=== PATIENT | female | born 1995 | race Caucasian/White ===

== ENCOUNTER 2018-08-28 18:02 | Emergency (ER) | payer OTHER ==
[2018-08-28] MEDS ORDERED: KETOROLAC 30 MG/1 ML SDV IVP ONE (18:33)
[2018-08-28] MEDS ORDERED: NS 1,000 ML IV ONE (18:33)
--- NOTE | 2018-08-28 18:34 | EDPHY ---
H & P Stated Complaint: RLQ abd pain x 48hrs Time Seen by Provider: 08/28/18 18:29 HPI/ROS: CHIEF COMPLAINT: Right upper quadrant pain HISTORY OF PRESENT ILLNESS: The patient is a 23-year-old female who comes to the emergency department complaining of right upper quadrant pain for the last 48 hr. She states that it is intermittent and seems to be worse when she eats or walks. It does not radiate. She presented to [facility] today where they perform a CBC and chemistry. Her white count was 7 and her electrolytes are normal. Her creatinine 0.7. test is negative. They also performed a negative Monospot and strep test because she has exudative tonsils and had sore throat this morning before gargling with salt water. It has since resolved. She has not had a fever. She has had mild nausea but no vomiting. No diarrhea. Rest of her lab work including LFTs and UA were negative. They referred her here for rule out appendicitis. Severity: Moderate Modifying factors: Worsened by eating and walking REVIEW OF SYSTEMS: Constitutional: denies: chills, fever, recent illness, recent injury EENTM: denies: blurred vision, double vision, nose congestion Respiratory: denies: cough, shortness of breath Cardiac: denies: chest pain, irregular heart rate, lightheadedness, palpitations Gastrointestinal/Abdominal: See HPI Genitourinary: denies: dysuria, frequency, hematuria, pain Musculoskeletal: denies: joint pain, muscle pain Skin: denies: lesions, rash, jaundice, bruising Neurological: denies: headache, numbness, paresthesia, tingling, dizziness, weakness Hematologic/Lymphatic: denies: blood clots, easy bleeding, easy bruising Immunologic/allergic: denies: HIV/AIDS, transplant 10 systems reviewed and negative except as noted EXAM: GENERAL: Well-appearing, well-nourished and in no acute distress. HEAD: Atraumatic, normocephalic. EYES: Pupils equal round and reactive to light, extraocular movements intact, sclera anicteric, conjunctiva are normal. ENT: TMs normal, nares patent, oropharynx clear without exudates. Moist mucous membranes. NECK: Normal range of motion, supple without lymphadenopathy or JVD. LUNGS: Breath sounds clear to auscultation bilaterally and equal. No wheezes rales or rhonchi. HEART: Regular rate and rhythm without murmurs, rubs or gallops. ABDOMEN: Right upper quadrant/right rib pain. Tenderness to palpation, negative Zhu sign. No lower abdominal tenderness. No suprapubic tenderness BACK: No CVA tenderness, no spinal tenderness, step-offs or deformities EXTREMITIES: Normal range of motion, no pitting or edema. No clubbing or cyanosis. NEUROLOGICAL: Cranial nerves II through XII grossly intact. Normal speech, normal gait. 5/5 strength, normal movement in all extremities, normal sensation , normal reflexes PSYCH: Normal mood, normal affect. SKIN: Warm, dry, normal turgor, no visible rashes or lesions. Source: Patient Exam Limitations: No limitations - Personal History LMP (Females 10-55): 15-21 Days Ago Current Tetanus Diphtheria and Acellular Pertussis (TDAP): Yes - Medical/Surgical History Hx Asthma: No Hx Chronic Respiratory Disease: No Hx Diabetes: No Hx Cardiac Disease: No Hx Renal Disease: No Hx Cirrhosis: No Hx Alcoholism: No Hx HIV/AIDS: No Hx Splenectomy or Spleen Trauma: No Other PMH: DVT's - Family History Significant Family History: No pertinent family hx - Social History Smoking Status: Never smoked Alcohol Use: None Constitutional: Initial Vital Signs Temperature (C) 37.3 C 08/28/18 18:04 Heart Rate 84 08/28/18 18:04 Respiratory Rate 16 08/28/18 18:04 Blood Pressure 114/72 08/28/18 18:04 O2 Sat (%) 97 08/28/18 18:04 O2 Delivery Mode Room Air Allergies/Adverse Reactions: Penicillins Allergy (Verified 08/28/18 18:06) Home Medications: Medication Instructions Recorded NK [No Known Home Meds] 08/28/18 Medical Decision Making - Diagnostics Imaging Results: Imaging Impressions Abdomen Ultrasound 08/28/18 18:33 Impression: Essentially negative right upper quadrant ultrasound with no evidence for cholelithiasis. Results called and discussed with MARY VÁSQUEZ M.D. on 08/28/2018 at 19:30. Abdomen CT 08/28/18 19:38 Impression: 1. Query constipation. 2. A normal appendix is visualized. 3. See above report for additional findings. Results called and discussed with MARY VÁSQUEZ M.D. on 08/28/2018 at 20:51. Imaging: Discussed imaging studies w/ photographer's assistant Radiologist ED Course/Re-evaluation: Patient was sent here to rule out appendicitis. I have very little concern for appendicitis based on her lab work and right upper quadrant pain. She has no right lower quadrant pain. She has a benign abdominal exam. Labs have all been performed earlier today. Will obtain ultrasound to evaluate her gallbladder and liver. 7:40 p.m. we discussed the patient's ultrasound which is reassuring. She is now however complaining more of pain in her right lower quadrant. She states that the pain is improved significantly after Toradol. Will obtain CT scanning. 8:55 p.m. We discussed the CT scans. She is reassured. We discussed treatment for constipation. Her lab work is all reassuring. Her abdominal exam is benign. Discussed indications for returning. Differential Diagnosis: Partial list of the Differential diagnosis considered include but were not limited to; biliary disease, constipation, appendicitis, kidney stone and although unlikely based on the history and physical exam, I also considered urinary tract infection, , cyst, torsion. I discussed these differential diagnoses and the plan with the patient as well as the usual and expected course. The patient understands that the diagnosis is provisional and that in medicine we are not always correct and that further workup is often warranted. Usual and customary warnings were given. All of the patient's questions were answered. The patient was instructed to return to the emergency department should the symptoms at all worsen or return, otherwise to followup with the physician as we discussed. - Data Points Medications Given: Discontinued Medications Sodium Chloride (Ns) 1,000 mls @ 0 mls/hr IV EDNOW ONE; Wide Open PRN Reason: Protocol Stop: 08/28/18 18:34 Last Admin: 08/28/18 18:52 Dose: 1,000 mls Ketorolac Tromethamine (Toradol) 30 mg IVP EDNOW ONE Stop: 08/28/18 18:34 Last Admin: 08/28/18 18:52 Dose: 30 mg Point of Care Test Results: Chemistry 08/28/18 18:29 POC Sodium 140 mEq/L mEq/L (135-145) POC Potassium 3.7 mEq/L mEq/L (3.3-5.0) POC Chloride 102 mEq/L mEq/L (97-110) POC Total CO2 23 mEq/L mEq/L (22-31) POC BUN 9 mg/dL mg/dL (7-23) POC Creatinine 0.6 mg/dL mg/dL (0.6-1.0) POC Glucose 91 mg/dL mg/dL (70-100) ISTAT H&H 08/28/18 18:29 POC Hgb 14.6 gm/dL gm/dL (12.6-16.3) POC Hct 43 % % (38-47) Departure - Departure Disposition: Home, Routine, Self-Care Clinical Impression: Abdominal pain Qualifiers: Abdominal location: generalized Qualified Code(s): R10.84 - Generalized abdominal pain Constipation Qualifiers: Constipation type: unspecified constipation type Qualified Code(s): K59.00 - Constipation, unspecified Condition: Fair Instructions: Constipation (ED), Acute Abdominal Pain (ED) Referrals: FREDERICK BOSS [Other] - 1 day, if not improved
[2018-08-28] MEDS ORDERED: KETOROLAC 15 MG/1 ML SDV ONE (18:48)
[2018-08-28] MEDS ORDERED: IOPAMIDOL (ISOVUE-300) 100 ML BTL ONE (19:51)
[2018-08-28 21:13] VITALS: BP 117/72
== END 2018-08-28 21:14 | disposition home or self-care (01) ==
DX: R10.31 Right lower quadrant pain (principal); K59.00 Constipation, unspecified; E86.9 Volume depletion, unspecified
CPT/HCPCS: 82435-PO; 82565-PO; 82947-PO; 84132-PO; 84295-PO; 84520-PO; 85014-ER; 96374; J1885; Q9967